=== PATIENT | female | born 1995 | race Caucasian/White ===

== ENCOUNTER 2019-03-29 03:37 | Inpatient (IN) | payer OTHER ==
[2019-03-29 04:10] VITALS: BMI 30.2
[2019-03-29 04:52] LABS: #Eosinphils 0.1 thou/uL (0.0-0.7); #Lymphocytes 2.1 thou/uL (1.20-3.40); #Monocytes 0.6 thou/uL (0.11-0.59); #Neutrophils 6.5 thou/uL (1.40-6.50); %Basophils 0.3 % (0.0-1.0); %Eosinophils 1.5 % (0.0-10.0); %Lymphocytes 22.4 % (21.0-51.0); %Monocytes 6.3 % (0.0-10.0); %Neutrophils 69.4 % (42.0-75.0); Hemoglobin 12.2 g/dL (12.0-16.0); Mean Corpuscular HGB CONC 34.5 g/dL (32.0-36.0); Mean Corpuscular Hemoglobin 31.2 pg (27.0-31.0); Mean Corpuscular Volume 90.6 fL (78.0-98.0); Mean Platelet Volume 8.4 fL (7.4-10.4); Platelet Count 230 thou/uL (130-400); RBC Distribution Width 12.9 % (11.5-14.5); White Blood Cell (WBC) Count 9.3 thou/uL (4.8-10.8)
[2019-03-29 05:10] LABS: ALT (SGPT) 12 U/L (8-55); AST (SGOT) 15 U/L (5-34); Albumin 3.7 g/dL (3.5-5.0); Alkaline Phosphatase 57 U/L (40-150); Anion Gap 12 mmol/L (10-20); BUN (Urea Nitrogen) 8 mg/dL (7.0-18.7); Bilirubin, Total 0.3 mg/dL (0.2-1.2); Calc. Creatinine Clearance 190 mL/min (70-130); Calcium 9.1 mg/dL (7.8-10.44); Carbon Dioxide 21 mmol/L (22-29); Chloride 106 mmol/L (98-107); Estimated GFR-MDRD Greater than 90; Globulin 2.4 g/dL (2.4-3.5); Glucose 88 mg/dL (70-105); Potassium 3.7 mmol/L (3.5-5.1); Protein, Total 6.1 g/dL (6.0-8.3); Sodium 135 mmol/L (136-145)
--- NOTE | 2019-03-29 05:52 | PRG ---
DATE OF SERVICE: 03/29/2019 SUBJECTIVE: The patient presents complaining of right lower quadrant pain with nausea and vomiting. It has progressed over the past 12 hours. CBC reveals a white count of 9000, is otherwise unremarkable. PHYSICAL EXAMINATION: ABDOMEN: Reveals no CVA tenderness. Point tenderness in the right lower quadrant with equivocal rebound, positive guarding and equivocal rebound from left side palpation. : Cervical exam is closed, long, and high. FHTs are 150s. I discussed with the patient her options and considering her history and her exam, I cannot effectively rule out appendicitis at this time. As the patient is 22 weeks gestation, we will go ahead and proceed with CT abdomen and pelvis without contrast. We discussed with the patient on risk of radiation and limited risk as we are beyond the level of organogenesis at this time. The patient understands and gives verbal consent. Discussed with radiologist. They want MRI without contrast for exam . Job ID: [id number] MTDD
[2019-03-29 06:12] LABS: Bacteria/HPF None Seen HPF (None Seen); Bilirubin Negative (Negative); Blood, Urine Negative (Negative); Clarity Clear (Clear); Glucose, Urine (Dipstick) Normal (Negative); Leukocyte Negative Leu/uL (Negative); Nitrite Negative (Negative); Protein, Urine (Dipstick) Negative (Neg-Trace); RBC/HPF 0-3 HPF (0-3); Squamous Epithelial 0-3 HPF (0-3); Urobilinogen Normal mg/dL (Less than 2); WBC/HPF 0-3 HPF (0-3)
[2019-03-29 06:15] LABS: Urine Culture Reflex No No
--- NOTE | 2019-03-29 07:02 | PDOC.EVN ---
Event Note - Event Note Event Note: Received report from Dr. Guadalupe. 24 yo WF at 22 weeks c/o LAP. No vaginal bleeding or UCs seen. FHTs stable with active FM. Labs, UA all WNL. Results reviewed with patient. MRI of abdomen ordered and pending.
[2019-03-29] MEDS ORDERED: Butorphanol Tartrate 1 MG/ML VIAL SLOW IVP SCH (09:00)
[2019-03-29] MEDS ORDERED: Butorphanol Tartrate 1 MG/ML VIAL ONE ×2 (09:17→10:32)
[2019-03-29] MEDS ORDERED: Ondansetron PF 4 MG/2 ML Vial ONE ×2 (09:17→17:17)
[2019-03-29] MEDS ORDERED: Ondansetron PF 4 MG/2 ML Vial IVP PRN (09:18)
--- NOTE | 2019-03-29 10:43 | PDOC.EVN ---
Event Note - Event Note Event Note: MRI returns with 'enlarged appendix" per Radiology. Pt. requiring Stadol for pain. Will consult General Surgery.
--- NOTE | 2019-03-29 10:44 | MRI ---
MRI ABDOMEN WITHOUT CONTRAST: Date: 03/29/19 HISTORY: 24-year-old female who is (22 weeks) with right lower side severe abdominal pain and vomitin g. FINDINGS: There is a fluid-filled tubular structure in the right lower quadrant measuring about 8 mm. This may represent a minimally distended fluid-filled appendix. No significant surrounding inflammatory change s are seen. No free fluid is identified. IMPRESSION: Probable early/developing appendicitis. Discussed over the telephone with Dr. Treviño at 1034 hours. CODE CR. POS: OFF
[2019-03-29] MEDS: Butorphanol Tartrate 1 MG/ML VIAL SLOW IVP SCH ×4 (13:07→19:35)
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
[2019-03-29] MEDS: cefOXitin 2 GM in Sodium Chloride 0.9% 100 ML IVPB SCH (15:13)
[2019-03-29] MEDS ORDERED: Glycopyrrolate 0.2 MG/ML 5 ML SYRINGE ONE (17:17)
[2019-03-29] MEDS ORDERED: PHENYLEPHRINE-NS 100 MCG/ML 10 ML SYRINGE ONE (17:17)
[2019-03-29] MEDS ORDERED: Rocuronium Bromide 10 MG/ML (10ML VIAL) ONE (17:17)
[2019-03-29] MEDS ORDERED: Lidocaine 1% PF 5 ML VIAL ONE (17:17)
[2019-03-29] MEDS ORDERED: PROPOFOL 200 MG/20 ML VIAL ONE (17:17)
[2019-03-29] MEDS ORDERED: Succinylcholine Chloride 20 MG/ML 10 ml SYRINGE FS ONE (17:17)
[2019-03-29] MEDS ORDERED: ePHEDrine 50 MG/ML VIAL ONE (17:17)
[2019-03-29] MEDS ORDERED: Morphine 4 MG/ML VIAL SLOW IVP PRN (18:26)
[2019-03-29] MEDS ORDERED: Morphine 4 MG/ML VIAL ONE (18:30)
[2019-03-29] MEDS ORDERED: Bupivacaine/Epinephrine 0.25% 30 ML VIAL ONE (21:46)
[2019-03-29] MEDS ORDERED: Fentanyl 250 MCG/5 ML VIAL ONE (22:20)
[2019-03-29] MEDS ORDERED: Ondansetron HCl/PF 4 MG/2 ML Vial IVP PRN (23:52)
[2019-03-29] MEDS ORDERED: Promethazine HCl 25 MG/ML VIAL IM PRN (23:52)
[2019-03-29] MEDS ORDERED: Promethazine HCl 25 MG/ML VIAL SLOW IVP PRN (23:52)
[2019-03-29] MEDS ORDERED: Fentanyl 100 MCG/2 ML VIAL ONE (23:58)
[2019-03-30] MEDS ORDERED: Dextrose 5% in Water 1,000 ML IV PRN (00:44)
[2019-03-30] MEDS ORDERED: hydrALAZINE 20 MG/ML VIAL SLOW IVP PRN (00:44)
[2019-03-30] MEDS ORDERED: Promethazine HCl 25 MG/ML VIAL IM PRN (00:44)
[2019-03-30] MEDS ORDERED: Ondansetron PF 4 MG/2 ML Vial IVP PRN (00:44)
[2019-03-30] MEDS ORDERED: Dextrose 50% Abboject 50 ML SYRINGE SLOW IVP PRN (00:44)
[2019-03-30] MEDS: Acetaminophen 1,000 MG in Premix Bag 1 BAG IVPB SCH ×4 (01:13→18:44)
[2019-03-30] MEDS: Butorphanol Tartrate 1 MG/ML VIAL SLOW IVP SCH ×10 (01:21→14:18)
[2019-03-30] MEDS: Morphine 4 MG/ML VIAL SLOW IVP PRN ×2 (02:59→05:32)
[2019-03-30] MEDS: cefOXitin 2 GM in Sodium Chloride 0.9% 100 ML IVPB SCH (06:41)
--- NOTE | 2019-03-30 07:05 | OP ---
DATE OF PROCEDURE: 03/29/2019 PREOPERATIVE DIAGNOSIS: Acute appendicitis in a female who is currently 22 weeks . POSTOPERATIVE DIAGNOSIS: Acute appendicitis in a female who is currently 22 weeks with early/mild appendicitis. PROCEDURE PERFORMED: Laparoscopic appendectomy. ANESTHESIA: General endotracheal. INDICATIONS: The patient is a 24-year-old white female, who presented to the hospital complaining of abdominal pain. She had a normal white blood cell count, but complained of persistent severe pain. An MRI was performed to evaluate for appendicitis. She was noted to have a prominent/inflamed appendix and it was felt to be probable that she have acute appendicitis. She is taken to the operative room at this time for laparoscopic appendectomy after a thorough discussion of risks and benefits. DESCRIPTION OF PROCEDURE: Informed consent was obtained. The patient was taken to the operating room. General endotracheal anesthesia was obtained with the patient in supine position. The abdomen was prepped with ChloraPrep and draped in sterile fashion. The table was turned to the patient's left to offload her uterus from her vascular structures. She was also placed into reverse Trendelenburg. Local anesthetic was infiltrated and a 5 mm epigastric incision was created, through which a Veress needle was passed into the abdominal cavity being sure to be in cephalad. Pneumoperitoneum was established with carbon dioxide up to pressure of 15 mmHg. A 5 mm trocar port was passed into the abdominal cavity. Under direct vision, I placed a second 5 mm port in the lateral right upper quadrant. Utilizing these ports, I was able to identify the appendix. There was no severe appendicitis; however, there was some injection along the appendix and it was more prominent than usual. This could have potentially been early appendicitis. I placed another 5 mm port in the right lower quadrant under direct vision. This was angled laterally. The appendix was grasped and the mesoappendix was taken down using electrocautery in order to skeletonize the base of the appendix. This was divided between PDS Endoloops and the appendiceal stump was cauterized. The appendix was placed in a specimen retrieval sac and was removed through the 12 mm port that was placed through the right lower quadrant incision. The fascia was closed with 0 Vicryl suture using a GraNee needle. The abdominal cavity was gently explored taking care to avoid the large gravid uterus. There was no intraabdominal inflammatory fluid or process that could be identified with simple laparoscopy. The area was gently irrigated. All irrigant was aspirated. All ports were removed under direct vision. There was no bleeding from any port site. Pneumoperitoneum was carefully evacuated. A 0.25% Marcaine with epinephrine was infiltrated at each of the 3 port sites. Skin edges were approximated with 4-0 Monocryl subcuticular suture and Dermabond was placed externally. There were no complications. The patient tolerated the procedure well and was taken to the recovery room in stable condition. Job ID: [id number]
[2019-03-30 07:29] LABS: #Lymphocytes 1.4 thou/uL (1.20-3.40); #Monocytes 0.6 thou/uL (0.11-0.59); #Neutrophils 6.5 thou/uL (1.40-6.50); %Basophils 0.2 % (0.0-1.0); %Eosinophils 0.6 % (0.0-10.0); %Monocytes 7.1 % (0.0-10.0); %Neutrophils 76.1 % (42.0-75.0); Mean Corpuscular HGB CONC 34.8 g/dL (32.0-36.0); Mean Corpuscular Hemoglobin 31.9 pg (27.0-31.0); Mean Corpuscular Volume 91.7 fL (78.0-98.0); Mean Platelet Volume 8.3 fL (7.4-10.4); Platelet Count 207 thou/uL (130-400); RBC Distribution Width 12.6 % (11.5-14.5); Red Blood Cell (RBC) Count 3.45 mill/uL (4.20-5.40); White Blood Cell (WBC) Count 8.6 thou/uL (4.8-10.8)
[2019-03-30] MEDS: Lactated Ringer's 1,000 ML IV SCH ×2 (07:48→14:19)
[2019-03-30] MEDS ORDERED: Famotidine/PF 20 mg/2ml Vial SLOW IVP SCH (09:00)
[2019-03-30] MEDS ORDERED: Famotidine 20 MG TAB PO SCH (09:00)
[2019-03-30] MEDS: HYDROcodone/Acetaminophen 10/325 mg Tablet PO PRN ×2 (14:55→19:46)
[2019-03-30 16:33] VITALS: TEMP 98.4
[2019-03-30 18:04] VITALS: BP 101/58
--- NOTE | 2019-03-31 04:45 | PRG ---
DATE OF SERVICE: 03/30/2019 SUBJECTIVE: Ms. Gilliland is seen this afternoon, postoperative day #1 following her laparoscopic appendectomy. She had recently been moved to Labor and Delivery to the unit. She was resting in bed. She complained of appropriate pain at her lower abdominal incision. This is the extraction site that was made with an oblique passage of the port in order to avoid contact with the uterus. She tolerated her diet and ambulated. OBJECTIVE: VITAL SIGNS: She is afebrile, pulse is 80s, blood pressure WNL. LUNGS: Clear to auscultation. ABDOMEN: Nontender except at the lower abdominal incision. Bowel sounds are present, but hypoactive. Incisions are healing nicely. LABORATORY DATA: CBC is normal with a white blood cell count of 8.6, hemoglobin of 11.0. ASSESSMENT: The patient is stable following laparoscopic appendectomy. Her surgery was uneventful and she appears to be doing well following her surgery. She is cleared from surgery standpoint for discharge. I would like to see her back in 2 weeks for routine followup in my office. She was given my card. Job ID: [id number] [facility]
== END 2019-03-30 19:50 | disposition home or self-care (01) | DRG 818 ==
LOC: L&D/OP 03:37 → L&D 13:16 → L&D-LIB 03-30 11:49 → 3SW 03-30 13:08
PROVIDERS: ADMIT Obstetrics & Gynecology; ATTEND Obstetrics & Gynecology
PROC: 0DTJ4ZZ Resection of Appendix, Percutaneous Endoscopic Approach (ICD-10-PCS; principal; 2019-03-30)
DX: O99.612 Diseases of the digestive system complicating pregnancy, second trimester (principal); K35.80 Unspecified acute appendicitis; Z3A.22 22 weeks gestation of pregnancy
CPT/HCPCS: 36415; 74181; 80053; 81001; 85025; 88304; 99285; J0131; J0595; J0694; J2001; J2270; J2405; J2704; J3010; J3490

== ENCOUNTER 2019-06-03 08:01 | Emergency (ER) | payer OTHER | END 2019-06-03 09:00 | disposition home or self-care (01) | LOC: ERS 08:01 | DX: J02.0 Streptococcal pharyngitis (principal); F32.9 Major depressive disorder, single episode, unspecified | CPT/HCPCS: 87430; 87804; 99283 ==

== ENCOUNTER 2019-06-12 11:31 | Day surgery (SDC) | payer OTHER ==
[2019-06-12 12:11] VITALS: BMI 32.8
[2019-06-12] MEDS ORDERED: hydrALAZINE 20 MG/ML VIAL SLOW IVP PRN (12:23)
[2019-06-12] MEDS ORDERED: hydrOXYzine Pamoate 25 mg Capsule PO SCH (12:30)
--- NOTE | 2019-06-12 13:15 | ULT ---
ULTRASOUND OBSTETRICAL LIMITED: DATE: 06/12/2019 HISTORY: 24-year-old female with third trimester premature contractions. Evaluate cervix. FINDINGS: number: whitman lie: Cephalic Maternal cervix: 3.5 cm. Closed. Placenta: Anterior. No placenta previa. heart rate: 132 bpm IMPRESSION: 1) Live 3rd trimester intrauterine gestation. 2) maternal cervix 3.5 cm. 3) cephalic lie.
--- NOTE | 2019-06-12 15:04 | PRG ---
DATE OF SERVICE: 06/12/2019 TIME OF SERVICE: 1440 hours. PRESENTING COMPLAINT: Contractions at 33 to 34 weeks' gestation. HISTORY OF PRESENT ILLNESS: Ms. Gilliland is a 24-year-old primigravida with EDC of 07/28, who sees Dr. Ashleigh Barajas. She presents complaining of contractions after intercourse. She denies rupture of membranes, vaginal bleeding. She reports an active fetus. 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 OB labs; O negative. Antibody negative. Pap negative. Rubella immune, VDRL nonreactive. Hepatitis B, GC, chlamydia negative. MEDICAL HISTORY: Includes migraines, depression, anxiety, and PTSD. PAST SURGICAL HISTORY: Appendectomy, scope, and shoulder. MEDICATIONS: vitamins, Valtrex. ALLERGIES: NONE. FAMILY HISTORY: Negative. SOCIAL HISTORY: Negative. PHYSICAL EXAMINATION: VITAL SIGNS: 5 feet 3, 172. Blood pressure 113/76, pulse 85, respirations 18, temperature 98.7. HEENT: Within normal limits. LUNGS: Clear to auscultation bilaterally. HEART: Regular rhythm. ABDOMEN: Soft, nontender. Occasional abdominal contractions. PELVIS: Vulva without lesions. Vaginal exam deferred. EXTREMITIES: No clubbing, cyanosis, or edema. The patient was administered Vistaril 50 mg x1, which trigger contractions about approximately q.2 to 5 minutes to q.10 minutes. Ultrasound was performed, which revealed a cervical length of 3.3 to 3.6 cm in vertex presentation. IMPRESSION: [place] contractions without evidence of labor with a normal cervical length. PLAN: Reassurance. Discharged home. The patient is to keep scheduled followup in [address] Ashleigh Barajas. Job ID: [id number]
== END 2019-06-12 14:50 | disposition home or self-care (01) ==
LOC: L&D/OP 11:31
PROVIDERS: ATTEND Obstetrics & Gynecology
DX: O47.02 False labor before 37 completed weeks of gestation, second trimester (principal); Z3A.00 Weeks of gestation of pregnancy not specified
CPT/HCPCS: 76815; 99282; Q0177

== ENCOUNTER 2019-06-23 16:04 | Emergency (ER) | payer OTHER | END 2019-06-23 18:38 | disposition home or self-care (01) | LOC: ERS 16:04 | DX: O99.513 Diseases of the respiratory system complicating pregnancy, third trimester (principal); J18.9 Pneumonia, unspecified organism; O99.343 Other mental disorders complicating pregnancy, third trimester; F32.9 Major depressive disorder, single episode, unspecified; Z3A.35 35 weeks gestation of pregnancy | CPT/HCPCS: 99283 ==

== ENCOUNTER 2019-07-10 18:19 | Inpatient (IN) | payer OTHER ==
[~2019-07-10 18:19] MED LIST: Bupivacaine 0.25% HCL 30 ML VIAL ONE
[2019-07-10 19:03] VITALS: BMI 33.5
[2019-07-10 19:55] LABS: Amnisure Test No Membranes Rupture (No Rupture)
[2019-07-10 19:56] LABS: Amnisure Internal Control QC ACCEPTABLE (ACCEPTABLE)
[2019-07-10] MEDS ORDERED: hydrALAZINE 20 MG/ML VIAL SLOW IVP PRN (20:25)
[2019-07-10] MEDS ORDERED: Lidocaine 1% (PF) 30 ML VIAL SC PRN (20:25)
[2019-07-10] MEDS ORDERED: HYDROcodone/Acetaminophen 5/325 mg Tablet PO PRN ×2 (20:25)
[2019-07-10] MEDS ORDERED: Meperidine HCl/PF 25 MG/ML VIAL IM/IV PRN (20:25)
[2019-07-10] MEDS ORDERED: Zolpidem Tartrate 5 MG TAB PO PRN (20:25)
[2019-07-10] MEDS ORDERED: Ibuprofen 800 MG TAB PO PRN (20:25)
[2019-07-10] MEDS ORDERED: NS / Oxytocin 40 units/1000ml 1,000 ML IV PRN (20:25)
[2019-07-10] MEDS ORDERED: Ondansetron PF 4 MG/2 ML Vial IVP PRN (20:25)
[2019-07-10] MEDS ORDERED: Promethazine HCl 25 MG/ML VIAL IM PRN (20:25)
[2019-07-10] MEDS ORDERED: NS w/ Oxytocin 10 units 500 ML IV SCH (20:30)
[2019-07-10] MEDS ORDERED: Lactated Ringer's 1,000 ML IV SCH (20:30)
--- NOTE | 2019-07-10 20:30 | PDOC.LDHP ---
Labor and Delivery H&P Chief complaint: contractions, loss of fluid HPI: 24 yo WF presents c/o UCs q 3 mins since 1630 today. Also c/o ?LOF vs. vaginal discharge. Seen by Dr. Lisa Barajas last week and reports she was 2 cm at that time. Current gestational age (weeks): 37 Due date: 07/28/19 Grav: 1 Para: 0 OB History Details: PNC with Dr. Lisa Barajas. 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 Denies recent outbreak or prodrome. Had appendectomy at 22 weeks this . Current complications: other (as above) Past Medical History: Anxiety, PTSD per record Current medications: pre- vitamins, other (Acyclovir) Previous surgical history: appendectomy, other (knee, shoulder) Allergies/Adverse Reactions: Allergies Allergy/AdvReac Type Severity Reaction Status Date / Time No Known Allergies Allergy Verified 07/10/19 18:57 Social history: none - Physical Exam Vital signs reviewed and normal: yes General: breathing through contractions Heart: RRR Lungs: CTAB Abdomen: gravid Extremeties: trace edema FHT: category 1 Captiva contractions every: q 2-3 min - Vaginal Exam cm dilated: 4 Effacement: 75% Station: -1 - OB Labs Blood type: O RH: negative Antibody Screen: negative HIV: negative RPR: negative HEPSAg: negative 1 hour GCT: negative GBS: positive Rubella: immune - Assessment L&D Assessment: term patient in labor - Plan Plan: admit to L&D, GBS antibiotic prophylaxis, anesthesia consult for pain management, other (Dr. Lisa Barajas notified of admit)
[2019-07-10] MEDS ORDERED: Penicillin G Potassium 5 MILL.UNITS in Sodium Chloride 0.9% 100 ML IVPB SCH (20:45)
[2019-07-10] MEDS ORDERED: FLU VACC QS2019-20(6MOS UP)/PF 60 MCG/0.5 ML SYRINGE IM ONE (21:00)
[2019-07-10 21:04] LABS: Hemoglobin 11.1 g/dL (12.0-16.0); Mean Corpuscular HGB CONC 33.4 g/dL (32.0-36.0); Mean Corpuscular Hemoglobin 27.3 pg (27.0-31.0); Mean Corpuscular Volume 81.8 fL (78.0-98.0); Mean Platelet Volume 9.4 fL (7.4-10.4); Platelet Count 245 thou/uL (130-400); RBC Distribution Width 13.6 % (11.5-14.5); Red Blood Cell (RBC) Count 4.08 mill/uL (4.20-5.40); White Blood Cell (WBC) Count 15.6 thou/uL (4.8-10.8)
[2019-07-10 21:41] LABS: Syphilis Antibody Nonreactive (Nonreactive); Syphilis Antibody Index 0.05 S/CO (<1.00 Non-Reactive)
[2019-07-10 22:44] LABS: HBSAg Index 0.24 S/CO (0-0.99); Hep B Surf Ag Non-Reactive S/CO (NonReactive)
[2019-07-11] MEDS: Penicillin G 2.5 MILL.units 2.5 MILL.UNITS in Premix Bag 1 BAG IVPB SCH ×2 (01:10→05:08)
[2019-07-11] MEDS: Lactated Ringer's 1,000 ML IV SCH ×4 (01:23→22:55)
[2019-07-11] MEDS: Butorphanol Tartrate 1 MG/ML VIAL SLOW IVP PRN ×2 (03:08→04:12)
[2019-07-11] MEDS ORDERED: Fentanyl 4 mcg/Bup 0.1% Cadd 100 ML ONE (04:52)
[2019-07-11] MEDS ORDERED: NS / Oxytocin 40 units/1000ml 1,000 ML ONE (06:53)
[2019-07-11] MEDS ORDERED: Lidocaine 1% (PF) 30 ML VIAL ONE (06:53)
[2019-07-11] MEDS ORDERED: ePHEDrine/0.9% NaCl/PF SYRINGE 50 mg/10 ml SLOW IVP PRN (07:03)
[2019-07-11] MEDS ORDERED: Naloxone HCl 0.4 mg/ml Vial IVP PRN ×2 (07:03)
[2019-07-11] MEDS ORDERED: Ondansetron PF 4 MG/2 ML Vial IVP PRN ×2 (07:03→08:07)
[2019-07-11] MEDS ORDERED: diphenhydrAMINE 50 MG/ML VIAL IVP PRN (07:03)
[2019-07-11] MEDS ORDERED: Promethazine HCl 25 MG/ML VIAL IM PRN (07:03)
[2019-07-11] MEDS ORDERED: Lactated Ringer's 500 ML IV PRN (07:03)
[2019-07-11] MEDS ORDERED: Acetaminophen 325 MG TAB PO PRN (07:03)
[2019-07-11] MEDS ORDERED: Fentanyl 4 mcg/Bupivacaine 0.1% Cassette 100 ML EPIDURAL SCH (07:15)
[2019-07-11] MEDS ORDERED: Communication Order-Pharmacy FS PRN (07:15)
[2019-07-11] MEDS ORDERED: hydrALAZINE 20 MG/ML VIAL SLOW IVP PRN (08:07)
[2019-07-11] MEDS ORDERED: Bisacodyl 10 MG SUPP PR PRN (08:07)
[2019-07-11] MEDS ORDERED: Lanolin Ointment 7 GM TUBE TOP PRN (08:07)
[2019-07-11] MEDS ORDERED: Preparation H Ointment 28 GM TUBE PR PRN (08:07)
[2019-07-11] MEDS ORDERED: Benzocaine-Menthol 82.5 ML CAN TOP PRN (08:07)
[2019-07-11] MEDS ORDERED: Acetaminophen/Codeine 30-300mg Tablet PO PRN ×2 (08:07)
[2019-07-11] MEDS ORDERED: Milk Of Magnesia 30 ML UDCUP PO PRN (08:07)
[2019-07-11] MEDS ORDERED: NS / Oxytocin 40 units/1000ml 1,000 ML IV SCH (08:15)
[2019-07-11] MEDS: Prenatal Vitamin 1 TAB PO SCH (10:48)
[2019-07-11] MEDS: Docusate Calcium (SURFAK) 240 MG CAP PO SCH ×2 (10:48→21:26)
--- NOTE | 2019-07-11 11:30 | DN ---
DATE OF PROCEDURE: 07/11/2019 PROCEDURE PERFORMED: Spontaneous vaginal delivery. PREOPERATIVE DIAGNOSES: A 24-year-old female, G1, who presented at 37 and 3, with a complaint of regular contractions and ruptured membranes. She was seen in triage and noted to have her membranes intact, however, she was 3 to 4 cm, reported 80% effaced, and -3 station with regular contractions in a category I tracing. The patient was admitted by the Laborist and several hours later had an amniotomy for clear fluid. At that time, her cervical exam was 4, 70, and -3. She wanted a low intervention delivery, so she was in the lower intervention room and was pretty comfortable at the time of rupture. The patient progressed in discomfort and did have 2 doses of Stadol and made it to 6 cm, 80% effaced, and -2 station. However, on subsequent exam 2 hours later, she had not made any cervical change and was continued to escalate in pain. The patient did receive an epidural and shortly after the epidural, she went to 8.5 cm and then complete and +2 with involuntary pushing. DESCRIPTION OF PROCEDURE: With good maternal effort, the patient gave one push and was able to deliver the vertex in the ALEKSANDR position. The head delivered followed by the anterior shoulder, then the posterior shoulder, then the remainder of the 's body. The cried a vigorous cry. The plan was for delayed cord clamping, however, there was an avulsed area in the cord that resulted in bleeding from the cord higher, so the cord was doubly clamped without delayed cord clamping and cut by the father of the baby. The was stimulated and placed on the maternal abdomen for [id number] after bulb suctioning the nares and oral airway. The placenta was delivered spontaneously intact with a three-vessel cord. An exploration of the vagina introitus and cervix revealed a second-degree midline laceration that extended into the vaginal sulcus and was repaired in the normal repair for a second-degree with excellent hemostasis. The patient tolerated the procedure well and was able to recover on Labor and Delivery in satisfactory condition with her . Again, the infant was a live born male with Apgars of 9 and 9 at one and five minutes respectively. ESTIMATED BLOOD LOSS: 350. QUANTITATIVE BLOOD LOSS: Still pending. Weight of the baby is still pending. COUNTS: All needle, sponge, lap, and instrument counts were correct x2 at the end of the procedure. There were no other issues surrounding this delivery. Job ID: [id number]
[2019-07-11] MEDS: Ibuprofen 800 MG TAB PO SCH ×2 (13:20→21:25)
[2019-07-11] MEDS: Ferrous Sulfate 325 MG TAB PO SCH (17:07)
[2019-07-12 05:15] VITALS: TEMP 98.5
[2019-07-12] MEDS: Ibuprofen 800 MG TAB PO SCH ×2 (05:23→14:33)
[2019-07-12] MEDS: Lactated Ringer's 1,000 ML IV SCH ×2 (07:07→09:02)
[2019-07-12] MEDS ORDERED: Adacel (T-DAP) 0.5 ML SYRINGE IM ONE (08:07)
[2019-07-12] MEDS: Penicillin G 2.5 MILL.units 2.5 MILL.UNITS in Premix Bag 1 BAG IVPB SCH (08:17)
[2019-07-12 08:21] VITALS: BP 119/65
[2019-07-12] MEDS: Ferrous Sulfate 325 MG TAB PO SCH (09:00)
[2019-07-12] MEDS: Docusate Calcium (SURFAK) 240 MG CAP PO SCH (09:01)
[2019-07-12] MEDS: Prenatal Vitamin 1 TAB PO SCH (09:01)
== END 2019-07-12 16:40 | disposition home or self-care (01) | DRG 806 ==
LOC: L&D/OP 18:19 → L&D 20:50 → 3SW 07-11 10:32
PROVIDERS: ADMIT Obstetrics & Gynecology; ATTEND Obstetrics & Gynecology
PROC: 10907ZC Drainage of Amniotic Fluid, Therapeutic from Products of Conception, Via Natural or Artificial Opening (ICD-10-PCS; principal; 2019-07-10)
PROC: 10E0XZZ Delivery of Products of Conception, External Approach (ICD-10-PCS; 2019-07-10)
PROC: 0KQM0ZZ Repair Perineum Muscle, Open Approach (ICD-10-PCS; 2019-07-10)
DX: O26.893 Other specified pregnancy related conditions, third trimester (principal); O98.52 Other viral diseases complicating childbirth; Z37.0 Single live birth; B00.89 Other herpesviral infection; Z67.91 Unspecified blood type, Rh negative; O99.824 Streptococcus B carrier state complicating childbirth; O99.02 Anemia complicating childbirth; D64.9 Anemia, unspecified; O70.1 Second degree perineal laceration during delivery; B00.9 Herpesviral infection, unspecified; Z3A.37 37 weeks gestation of pregnancy; O90.81 Anemia of the puerperium
CPT/HCPCS: 36415; 84112; 85027; 85461; 86780; 86850; 86870; 86900; 86901; 87340; 90384; 96372; J0595; J2001; J2405; J2540; J3490; S0020